=== PATIENT | female | born 1960 | race Caucasian/White ===

== ENCOUNTER → 2020-10-20 14:44 | Outpatient (BNVA) | payer SELFPAY | PROVIDERS: Visit Provider Advanced Practice Midwife | DX: Z76.89 Persons encountering health services in other specified circumstances (principal) ==

== ENCOUNTER 2020-10-22 14:13 | Outpatient (REF) | payer BC, SELFPAY | END 2020-10-22 14:14 | disposition home or self-care (01) | LOC: HO.LAB 14:13 | PROVIDERS: Visit Provider Obstetrics & Gynecology | DX: N88.8 Other specified noninflammatory disorders of cervix uteri (principal) | CPT/HCPCS: 57454; 88305; 88342; 88360 ==

== ENCOUNTER → 2020-11-10 14:55 | Outpatient (BNVA) | payer BC, SELFPAY | PROVIDERS: Visit Provider Obstetrics & Gynecology | DX: Z76.89 Persons encountering health services in other specified circumstances (principal) ==